=== PATIENT | male | born 1965 | race Caucasian/White ===

== ENCOUNTER → 2018-01-26 16:28 | Outpatient (CLI) | payer BC, SELFPAY ==
[2018-01-26 17:45] LABS: Absolute Lymphocyte Count 1.66 X10^3/ul (0.83-4.51); Absolute Neutrophil Count 2.5 X10^3/uL (2.0-7.7); Basophil# 0.03 X10^3/uL; Basophil% 0.6 % (0-1); Eosinophil# 0.26 X10^3/uL; Eosinophils% 5.3 % (0-5); Hematocrit 45.6 % (40-54); Hemoglobin 15.7 g/dl (13.0-16.5); Lymphocyte # 1.66 X10^3/ul (4.0); Lymphocyte % 33.6 % (19-41); Mean Corp Hgb Conc 34.4 g/gl (32-36); Mean Corpuscular Hgb 29.4 pg (27.0-32.0); Mean Corpuscular Volume 85.4 fL (80-94); Mean Platelet Vol. 9.4 fl (6.2-12.0); Monocyte# 0.48 X10^3/uL; Monocyte% 9.7 % (0-10); Neutrophil # 2.51 X10^3/uL (2.7-7.7); Neutrophil % 50.8 % (47-70); Platelet Count 353 K/mm3 (150-450); RBC Distribution Width CV 13.2 % (11.6-14.6); RBC Distribution Width SD 40.6 fl (35.1-43.9); Red Blood Count 5.34 M/mm3 (4.6-6.2); White Blood Count 4.9 K/mm3 (4.4-11.0)
[2018-01-26 17:46] LABS: POSITIVE COUNT NO; POSITIVE DIFFERENTIAL NO; POSITIVE MORPHOLOGY NO
[2018-01-26 18:31] LABS: ALB/GLOB Ratio 1.3 RATIO (0.9-2.4); AST(SGOT) 22 U/L (15-37); Alanine Aminotransfer ALT/SGPT 41 U/L (16-61); Albumin, Serum 4.1 g/dL (3.2-5.0); Alkaline Phosphatase 110 U/L (45-117); Anion Gap 6 (5-15); BUN 16 mg/dL (7-18); BUN/Creat Ratio 16.7 RATIO (10-20); Chloride 108 mmol/L (98-107); Creatinine, Serum 0.96 mg/dL (0.70-1.30); EST Glomerular Filtration Rate 88 mL/min (>60); Est Glom Filt Rate - Afr Amer 106 mL/min (>60); Globulin 3.1 g/dL (2.2-4.2); Glucose 82 mg/dL (74-106); Potassium 4.1 mmol/L (3.5-5.1); Protein, Total 7.2 g/dL (6.4-8.2); Sodium Level 142 mmol/L (136-145); T4 Free Direct 0.93 ng/dL (0.76-1.46); Thyroid Stim Hormone (TSH) 1.31 uIU/mL (0.358-3.74)
== END ==
PROVIDERS: Family Provider Family Medicine; PCP Family Medicine; Visit Provider Family Medicine
DX: R13.10 Dysphagia, unspecified (principal)
CPT/HCPCS: 36415; 80053; 84439; 84443; 85025

== ENCOUNTER → 2018-02-03 07:56 | Outpatient (CLI) | payer BC, SELFPAY ==
--- NOTE | 2018-02-03 07:58 | RAD_ITS ---
STUDY: X-RAY - ESOPHAGUS (BARIUM SWALLOW) WITH FLUOROSCOPY REASON FOR EXAM: Male, 52 years old. One year history of dysphagia. TECHNIQUE: 13 view(s) of the esophagus were obtained following swallowing of barium. FLUOROSCOPY TIME (if supplied): (0:20) minutes/seconds COMPARISON: None. FINDINGS: There is no demonstrated esophageal foreign body. There is no demonstrated stricture or mucosal abnormality. Normal gastroesophageal junction, without a demonstrated hiatal hernia. The patient ingested a 12 mm tablet of barium without any difficulty. Normal visualized aortic arch and descending thoracic aorta. Normal visualized pulmonary parenchyma. Normal visualized osseous structures of the thorax. RAD/Esophagus Only IMPRESSION: Normal plain film x-ray examination (barium swallow) of the esophagus. Electronically Signed: Micah Rojo MD at 8:43 EDT Tel [phone], Service support ,
== END ==
PROVIDERS: Family Provider Family Medicine; PCP Family Medicine; Visit Provider Family Medicine
DX: R13.10 Dysphagia, unspecified (principal)
CPT/HCPCS: 74220

== ENCOUNTER 2018-04-13 12:56 | Outpatient (RCR) | payer BC, SELFPAY | END 2018-04-25 23:59 | LOC: NS 12:56 | PROVIDERS: Family Provider Family Medicine; PCP Family Medicine; Visit Provider Family Medicine | DX: E66.09 Other obesity due to excess calories (principal); Z68.31 Body mass index [BMI] 31.0-31.9, adult; Z71.3 Dietary counseling and surveillance ==

== ENCOUNTER 2018-05-15 11:02 | Outpatient (RCR) | payer BC, SELFPAY ==
--- NOTE | 2018-05-15 16:45 | HP.PTEVAL ---
Patient's Visit Information STEPHAN MONTELONGO is a 52 year old M referred to Physical Therapy by Edy Chaparro with a diagnosis of B plantar fasciatis, L worse than R. Date of Evaluation: 05/15/18 Physical Therapist: Benjamin Neri - Visit Plan Frequency: 1x/Week Duration: 10 weeks Plan: Start with stretching of G/S complex, stress long holds with increased frequency. Add in graston for plantar fascia and foam rolling of G/S complex. progress to eccentric loading of tissue once symptoms have reduced. - Subjective Subjective: Pt. is here today for his initial evaluation with diagnosis B plantar fasciatis with L worse than R. Pt. reports having bilateral plantar fasciatis for ~ 2 years. Pt. reprots having Pt prior to this with focus on on US, IFC. He has done some self stretching at home, but not consistently. Pt. has also trialed night splints, but did not wear consistently. Pt. reports increased pain in AMs iwth initial steps that improves with movement, but increases by the end of the day. He denies N/T in either LEs. Pt. reports pain at plantar surface of calcaneus. Pt. works in [employer] 12 hours a day. Pt. is hopeful to reduce symptoms in order to get back to all recreational activities without limitations. - Pain L plantar fascia Pain Intensity (Out of 10): 1 Pain Intensity Range: 0, 7 R plantar fascia Pain Intensity (Out of 10): 0 Pain Intensity Range: 0, 3 - Objective POSTURE: Pt. has pes cavus in bilateral arches. He does have navicular drop in SLS on BLE with some increased ankle instability. PALPATION: Pt. has increasd tenderness throughout plantar fascia, and longitudinal arch bilaterally. Mild achilles tendon tenderness. NEURO: Normal, no issues. ROM: Pt. has normal ROM, except 10deg of R DF and 8deg of L DF passively. Pt. reports increased stretch with G/S complete stretching. MMT: 5/5 throughout, except 4+/5 bilateral foot intrinsics. Pt. has normal knee strength bilaterally. GAIT: Pt. has slight increase in toeing out on R side during stance phase. PT. has increased calcaneal varus in stance. STAIRS: early heel off with stance phase bilaterally L worse than R. SPECIAL TEST: + windlass test unloaded and loaded. - Goals Goal 1:: Pt. to be I with HEP. Goal Time Frame: 4-6 Weeks Goal 2:: Pt. to have increased B ankle DF by 5deg allowing for decreased stress on plantar fascia during stance phase. Goal Time Frame: 4-6 Weeks Goal 3:: Pt. to ambulate without increase in symptoms for unlimited distances. Goal Time Frame: 4-6 Weeks Goal 4:: Pt. to have decreased pain with initial standing after prolonged sitting or initially in AMs. Goal Time Frame: 4-6 Weeks - Rehabilitation Potential Physical Therapy Diagnosis: Pt. hs signs and symptoms consistent with B plantar fasciatis with L being worse than R. Pt. has decreased G/S length, decreased tolerance to walking and increased pain. He would benefit from PT to increase ROM, decrease pain and increased tolerance to all walking/standing mobility. Rehabilitation Potential: Good - Anticipated Interventions Patient/Client Instruction: Educate patient on: Condition, Plan of Care, Risk Factors, Benefits of Fitness Program For the Purpose of:: To improve safety, To improve health and function, To foster healthy habits, To improve decision making, To facilitate caregiver knowledge, To improve self management, To prevent re-injury, To improve ability to perform tasks related to life management, To improve tolerance to ADL's Therapeutic Exercise to Include: Strength training, Power training, Postural training, Flexibilty training, Gait and locomotor training, Passive ROM, Active ROM For the Purpose of:: To decrease pain, To decrease swelling/inflammation, To increase ROM, To improve nutrient delivery to tissue, To increase oxygenation perfusion, To improve health of tissue, To decrease soft tissue restriction, To increase flexibility/ROM, To improve endurance Manual Therapy Techniques to Include: Mobilization, Functional dry needling, Soft tissue mobilization For the Purpose of:: To decrease pain, To decrease swelling/inflammation, To increase ROM, To improve nutrient delivery to tissue Thank you for the opportunity to evaluate your patient. For Medicare and Medicare HMO plans, please review the plan of care and approve it. It will need to be FAXED BACK to us at [phone] for Medicare purposes. Please let me know if there are questions or concerns regarding this plan of care. Physician Signature: Date:
--- NOTE | 2018-07-04 10:44 | HP.PT.NRP ---
HP - Discharge Summary (1) - Patient Information STEPHAN MONTELONGO was seen in my office for initial evaluation on 05/15/18. The following Plan of Care was established for this patient: Initial Frequency: 1x/Week Initial Duration: 10 weeks - Anticipated Interventions Patient/Client Instruction: Educate patient on: Condition, Plan of Care, Risk Factors, Benefits of Fitness Program For the Purpose of:: To improve safety, To improve health and function, To foster healthy habits, To improve decision making, To facilitate caregiver knowledge, To improve self management, To prevent re-injury, To improve ability to perform tasks related to life management, To improve tolerance to ADL's Therapeutic Exercise to Include: Strength training, Power training, Postural training, Flexibilty training, Gait and locomotor training, Passive ROM, Active ROM For the Purpose of:: To decrease pain, To decrease swelling/inflammation, To increase ROM, To improve nutrient delivery to tissue, To increase oxygenation perfusion, To improve health of tissue, To decrease soft tissue restriction, To increase flexibility/ROM, To improve endurance Manual Therapy Techniques to Include: Mobilization, Functional dry needling, Soft tissue mobilization For the Purpose of:: To decrease pain, To decrease swelling/inflammation, To increase ROM, To improve nutrient delivery to tissue This patient was last seen in our office 05/15/18. Pertinent comments regarding their Physical therapy will appear below: Pt. was seen for his initial evaluation with diagnosis of plantar faciatis. Pt. was seen for initial evaluation, but no subsequent visits. He has not been seen in ~6 weeks and will be DC from PT at this point in time. At this point I will be discontinuing this patient from physical therapy. I would be happy to see this patient again in the future if found appropriate by the physician. Thank you! Benjamin Neri
== END 2018-05-15 19:00 | disposition home or self-care (01) ==
LOC: PT 11:02
PROVIDERS: Family Provider Family Medicine; PCP Family Medicine; Visit Provider Family Medicine
DX: M72.2 Plantar fascial fibromatosis (principal)
CPT/HCPCS: 97110; 97161

== ENCOUNTER 2018-05-24 10:30 | Outpatient (RCR) | payer BC, SELFPAY | END 2018-05-26 23:59 | LOC: NS 10:30 | PROVIDERS: Family Provider Family Medicine; PCP Family Medicine; Visit Provider Family Medicine | DX: E66.9 Obesity, unspecified (principal); Z68.31 Body mass index [BMI] 31.0-31.9, adult; Z71.3 Dietary counseling and surveillance | CPT/HCPCS: 97803 ==

== ENCOUNTER 2018-06-09 08:33 | Outpatient (RCR) | payer BC, SELFPAY | END 2018-06-25 23:59 | LOC: NS 08:33 | PROVIDERS: Family Provider Family Medicine; PCP Family Medicine; Visit Provider Family Medicine | DX: E66.9 Obesity, unspecified (principal); Z68.31 Body mass index [BMI] 31.0-31.9, adult; Z71.3 Dietary counseling and surveillance | CPT/HCPCS: 97803 ==

== ENCOUNTER 2018-06-26 09:07 | Outpatient (RCR) | payer BC, SELFPAY | END 2018-07-26 23:59 | LOC: NS 09:07 | PROVIDERS: Family Provider Family Medicine; PCP Family Medicine; Visit Provider Family Medicine | DX: E66.9 Obesity, unspecified (principal); Z68.31 Body mass index [BMI] 31.0-31.9, adult; Z71.3 Dietary counseling and surveillance ==

== ENCOUNTER 2018-09-07 09:59 | Outpatient (RCR) | payer BC, SELFPAY ==
--- OUTSIDE RECORDS SUMMARY | 2018-10-24 04:05 | XMS RPT_ITS ---
:1965 Author Organization OHIP Support Name Relationship Address Phone TERI MONTELONGO Unavailable [address] + [place] [address] JMSM Unavailable [address] + [place] [address] REGINALD, TERI Unavailable [address] + [place] [address] JMSM Unavailable [address] + [place] [address] REGINALD, TERI Unavailable [address] + [place] [address] JMSM Unavailable [address] + [place] [address] REGINALD, TERI Unavailable [address] + [place] [address] JMSM Unavailable [address] + [place] [address] REGINALD, TERI Unavailable [address] + [place] [address] JMSM Unavailable [address] + [place] [address] REGINALD, TERI Unavailable [address] + [place] [address] JMSM Unavailable [address] + [place] [address] REGINALD, TERI Unavailable [address] + [place] [address] JMSM Unavailable [address] + [place] [address] REGINALD, TERI Unavailable [address] + [place] [address] JMSM Unavailable [address] + [place] [address] REGINALD, TERI Unavailable [address] [place] [address] DR + [place] [address] [facility] [place] [address] + [place] [address] Care Team Providers Name Role Phone Chaparro, Edy Attending Unavailable Chaparro, Edy Primary Care Unavailable Chaparro, Edy Attending Unavailable Chaparro, Edy Primary Care Unavailable Chaparro, Edy Attending Unavailable Chaparro, Edy Referring Unavailable Chaparro, Edy Primary Care Unavailable Chaparro, Edy Attending Unavailable Chaparro, Edy Primary Care Unavailable Chaparro, Edy Attending Unavailable Chaparro, Edy Primary Care Unavailable Chaparro, Edy Attending Unavailable Chaparro, Edy Referring Unavailable Chaparro, Edy Primary Care Unavailable Chaparro, Edy Attending Unavailable Chaparro, Edy Primary Care Unavailable Chaparro, Edy Attending Unavailable Chaparro, Edy Primary Care Unavailable Chaparro, Edy Attending Unavailable Chaparro, Edy Primary Care Unavailable PROBLEMS PROBLEMS DATE TYPE CONDITION / CODE ATTENDING STATUS SOURCE 09/27/2018 Unknown E66.9 - Obesity, Shankar, Edy Active [facility] unspecified / Community E66.9(ICD-10) Hospital Repository 07/06/2018 Unknown M72.2 - Plantar Chaparro, Edy Active [place] fascial Community fibromatosis / Hospital M72.2(ICD-10) Repository 02/03/2018 Unknown R13.10 - Chaparro, Edy Active [facility] Dysphagia, Community unspecified / Hospital R13.10(ICD-10) Repository PROCEDURES PROCEDURES No Procedure Records FoundRESULTS RESULTS INITAL EVALUATION (1) Observed: 05/15/2018 Status: F Source: [place] - PT 4:46 PM [facility] [place] [facility] [address] [place] [address] Fax REHABILITATION SERVICES INITIAL EVALUATION MR#: [id number] Acct: [id number] Name: STEPHAN MONTELONGO Rep #: [id number] : 1965 52 From: Benjamin Neri DPT Referring Dr.: Edy Chaparro MD Status: REG RCR Insurance: ANTHEM SELF PAY INSURANCE Patient's Visit Information STEPHAN MONTELONGO is a 52 year old M referred to Physical Therapy by Edy Chaparro with a diagnosis of B plantar fasciatis, L worse than R. Date of Evaluation: 05/15/18 Physical Therapist: Benjamin Neri - Visit Plan Frequency: 1x/Week Duration: 10 weeks Plan: Start with stretching of G/S complex, stress long holds with increased frequency. Add in graston for plantar fascia and foam rolling of G/S complex. progress to eccentric loading of tissue once symptoms have reduced. - Subjective Subjective: Pt. is here today for his initial evaluation with diagnosis B plantar fasciatis with L worse than R. Pt. reports having bilateral plantar fasciatis for 2 years. Pt. reprots having Pt prior to this with focus on on US, IFC. He has done some self stretching at home, but not consistently. Pt. has also trialed night splints, but did not wear consistently. Pt. reports increased pain in AMs iwth initial steps that improves with movement, but increases by the end of the day. He denies N/T in either LEs. Pt. reports pain at plantar surface of calcaneus. Pt. works in [employer] 12 hours a day. Pt. is hopeful to reduce symptoms in order to get back to all recreational activities without limitations. - Pain L plantar fascia Pain Intensity (Out of 10): 1 Pain Intensity Range: 0, 7 R plantar fascia Pain Intensity (Out of 10): 0 Pain Intensity Range: 0, 3 - Objective POSTURE: Pt. has pes cavus in bilateral arches. He does have navicular drop in SLS on BLE with some increased ankle instability. PALPATION: Pt. has increasd tenderness throughout plantar fascia, and longitudinal arch bilaterally. Mild achilles tendon tenderness. NEURO: Normal, no issues. ROM: Pt. has normal ROM, except 10deg of R DF and 8deg of L DF passively. Pt. reports increased stretch with G/S complete stretching. MMT: 5/5 throughout, except 4+/5 bilateral foot intrinsics. Pt. has normal knee strength bilaterally. GAIT: Pt. has slight increase in toeing out on R side during stance phase. PT. has increased calcaneal varus in stance. STAIRS: early heel off with stance phase bilaterally L worse than R. SPECIAL TEST: + windlass test unloaded and loaded. - Goals Goal 1:: Pt. to be I with HEP. Goal Time Frame: 4-6 Weeks Goal 2:: Pt. to have increased B ankle DF by 5deg allowing for decreased stress on plantar fascia during stance phase. Goal Time Frame: 4-6 Weeks Goal 3:: Pt. to ambulate without increase in symptoms for unlimited distances. Goal Time Frame: 4-6 Weeks Goal 4:: Pt. to have decreased pain with initial standing after prolonged sitting or initially in AMs. Goal Time Frame: 4-6 Weeks - Rehabilitation Potential Physical Therapy Diagnosis: Pt. hs signs and symptoms consistent with B plantar fasciatis with L being worse than R. Pt. has decreased G/S length, decreased tolerance to walking and increased pain. He would benefit from PT to increase ROM, decrease pain and increased tolerance to all walking/standing mobility. Rehabilitation Potential: Good - Anticipated Interventions Patient/Client Instruction: Educate patient on: Condition, Plan of Care, Risk Factors, Benefits of Fitness Program For the Purpose of:: To improve safety, To improve health and function, To foster healthy habits, To improve decision making, To facilitate caregiver knowledge, To improve self management, To prevent re-injury, To improve ability to perform tasks related to life management, To improve tolerance to ADL's Therapeutic Exercise to Include: Strength training, Power training, Postural training, Flexibilty training, Gait and locomotor training, Passive ROM, Active ROM For the Purpose of:: To decrease pain, To decrease swelling/inflammation, To increase ROM, To improve nutrient delivery to tissue, To increase oxygenation perfusion, To improve health of tissue, To decrease soft tissue restriction, To increase flexibility/ROM, To improve endurance Manual Therapy Techniques to Include: Mobilization, Functional dry needling, Soft tissue mobilization For the Purpose of:: To decrease pain, To decrease swelling/inflammation, To increase ROM, To improve nutrient delivery to tissue Thank you for the opportunity to evaluate your patient. For Medicare and Medicare HMO plans, please review the plan of care and approve it. It will need to be FAXED BACK to us at [phone] for Medicare purposes. Please let me know if there are questions or concerns regarding this plan of care. Physician Signature: Date: <Electronically signed by Benjamin Neri DPT> 05/15/18 1646 CC: Edy Chaparro MD CLS Signed For Medicare only, by signing this I certify the plan of care. Physicians Signature Date ESOPHAGUS ONLY Observed: 02/03/2018 Status: F Source: [facility] 7:59 AM [facility] [place] [facility] Imaging Services [address] [place] [address] Esophagus Only MR#: [id number] Acct: [id number] Name: STEPHAN MONTELONGO Rep #: [id number] : 1965 M 52 From: Micah Rojo MD PCP: Edy Chaparro MD Status: REG CLI Study: Esophagus Only Date of Exam: 02/03/18 Exam# [id number] Ordering Dr: Edy Chaparro MD STUDY: X-RAY - ESOPHAGUS (BARIUM SWALLOW) WITH FLUOROSCOPY REASON FOR EXAM: Male, 52 years old. One year history of dysphagia. TECHNIQUE: 13 view(s) of the esophagus were obtained following swallowing of barium. FLUOROSCOPY TIME (if supplied): (0:20) minutes/seconds COMPARISON: None. FINDINGS: There is no demonstrated esophageal foreign body. There is no demonstrated stricture or mucosal abnormality. Normal gastroesophageal junction, without a demonstrated hiatal hernia. The patient ingested a 12 mm tablet of barium without any difficulty. Normal visualized aortic arch and descending thoracic aorta. Normal visualized pulmonary parenchyma. Normal visualized osseous structures of the thorax. RAD/Esophagus Only IMPRESSION: Normal plain film x-ray examination (barium swallow) of the esophagus. Electronically Signed: Micah Rojo MD at 8:43 EDT Tel [phone], Service support , CC: Edy Chaparro MD Community Health Outreach Worker: Signed CBC W/DIFF, AUTOMATED Collected: 01/26/2018 Status: F Source: [place] 4:32 PM [facility] [place] [facility] TYPE CODE TESTS RESULT OUT OF RANGE REFERENCE UNITS LAB L100.1000 4.4-11.0 K/mm3 Normal WBC 4.9 LAB L100.1200 4.6-6.2 M/mm3 Normal RBC 5.34 LAB L100.1300 13.0-16.5 g/dl Normal HGB 15.7 LAB L100.1400 40-54 % Normal HCT 45.6 LAB L100.1500 80-94 fL Normal MCV 85.4 LAB L100.1600 27.0-32.0 pg Normal MCH 29.4 LAB L100.1700 32-36 g/gl Normal MCHC 34.4 LAB L100.1810 11.6-14.6 % Normal RDW CV 13.2 LAB L100.1820 35.1-43.9 fl Normal RDW SD 40.6 LAB L100.1900 150-450 K/mm3 Normal PLT 353 LAB L100.2000 6.2-12.0 fl Normal MPV 9.4 LAB L100.2100 47-70 % Normal NEUT% 50.8 LAB L100.2200 19-41 % Normal LY% 33.6 LAB L100.2300 0-10 % Normal MONO% 9.7 LAB L100.2400 0-5 % High EO% 5.3 LAB L100.2500 0-1 % Normal BASO% 0.6 LAB L100.2550 0.0-0.9 % Normal IM GRAN % 0.000 Result Comment: IG% - Immature Granulocytes (promyelocytes, myelocytes and metamyelocytes) > 1% indicates that a LEFT SHIFT is Present. LAB L100.2620 2.0-7.7 X10 3/uL Normal Absolute Neut 2.5 LAB L100.2720 0.83-4.51 X10 3/ul Normal Absolute Lymph 1.66 Performed By: #### L100.0100 #### [facility] [place], [place], [id number] COMPREHENSIVE METABOLIC Collected: 01/26/2018 Status: F [facility] [place] [facility] TYPE CODE TESTS RESULT OUT OF RANGE REFERENCE UNITS LAB L501.0100 74-106 mg/dL Normal GLU 82 Result Comment: Please note revised GLUCOSE reference range effective 2017. LAB L501.1000 7-18 mg/dL Normal BUN 16 LAB L501.1100 0.70-1.30 mg/dL Normal CREAT,SERUM 0.96 Result Comment: The validity of the calculated GFR AND GFRAA in patients over 70 years has not been determined. Clinical correlation is essential. LAB L501.1110 >60 mL/min Normal EST GFR 88 Result Comment: Non- GFR Calc LAB L501.1115 >60 mL/min Normal EST GFR - AA 106 Result Comment: GFR Calc LAB L501.1300 10-20 RATIO Normal BUN/CRE 16.7 LAB L501.1500 6.4-8.2 g/dL T Normal PROT 7.2 LAB L501.1800 3.2-5.0 g/dL Normal ALB 4.1 LAB L501.1950 2.2-4.2 g/dL Normal GLOB 3.1 LAB L501.2000 0.9-2.4 RATIO Normal A/G 1.3 LAB L501.2200 8.5-10.1 mg/dL CA Normal 9.0 LAB L501.4100 15-37 U/L Normal AST 22 LAB L501.4305 45-117 U/L Normal ALK P 110 LAB L501.4405 16-61 U/L Normal ALT 41 LAB L501.4600 0.20-1.00 mg/dL T Normal BILI 0.40 LAB L501.5300 136-145 mmol/L NA Normal 142 LAB L501.5600 3.5-5.1 mmol/L K Normal 4.1 LAB L501.5900 98-107 mmol/L High CL 108 LAB L501.6100 21.0-32.0 mmol/L Normal CO2 28.0 LAB L501.6200 5-15 Normal GAP 6 Performed By: #### L500.4050, L501.9520, L506.0400 #### [facility] [address] [place], [place], [id number] THYROID STIM HORMONE Collected: 01/26/2018 Status: F Source: [facility] (TSH) 4:32 PM [facility] [place] [facility] TYPE CODE TESTS RESULT OUT OF RANGE REFERENCE UNITS LAB L501.9520 0.358-3.74 uIU/mL Normal TSH 1.31 Performed By: #### L500.4050, L501.9520, L506.0400 #### [facility] [address] [place], [address] T4 FREE DIRECT Collected: 01/26/2018 Status: F Source: [facility] 4:32 PM [facility] REPOSITORY TYPE CODE TESTS RESULT OUT OF RANGE REFERENCE UNITS LAB L506.0400 0.76-1.46 ng/dL Normal T4 FREE 0.93 DIRECT Performed By: #### L500.4050, L501.9520, L506.0400 #### [facility] [address] [place], [address] ALLERGIES ALLERGIES No Allergies Records FoundENCOUNTERS ENCOUNTERS ADMIT/DISCHARGE ACCOUNT ADMITTING ENCOUNTER LOCATION SOURCE NUMBER CLASS 09/29/2018 [id number] Ambulatory [facility] [place] [facility] ing:NS Repository 09/07/2018/ [id number] Ambulatory [facility] [address] [facility] ing:NS Repository 06/26/2018/ [id number] Ambulatory [facility] [address] [facility] ing:NS Repository 06/09/2018/ [id number] Ambulatory [facility] [address] [facility] ing:NS Repository 05/24/2018/ [id number] Amb[place] [address] [facility] ing:NS Repository 05/15/2018/ [id number] Ambulatory [facility] [address] [facility] ing:PT Repository 04/13/2018/ [id number] Ambulatory [place] [address] [facility] ing:NS Repository 02/03/2018 [id number] Ambulatory [facility] ing:RAD Repository 01/26/2018 [id number] Amb[place] [facility] ing:MFPLAB Repository PAYERS PAYERS ENCOUNTER GUARANTOR PAYER SUBSCRIBER SOURCE 09/29/2018 STEPHAN Curry [id number] [address] Insurance:ANTHEMPolic [place]DOB: [place] Number: [id number] [id number]: [id number] Repository Date:4948-09-62MB [address] () [id number] [place] [address]PB: 09/29/2018 Secondary NOT GIVENUNK [place] Insurance:SELF PAY [facility] Number: Effective Repository Date:2018-09-26 09/07/2018 STEPHAN Franco Primary STEPHAN Franco [place] [id number] [address] Insurance:ANTHEMPolic BINGDOB: Community [place], y Number: [id number][facility] [id number]: [id number] Repository Date:3637-83-55OR [address] () [id number] [place] [address]VS: 09/07/2018 Secondary NOT GIVENUNK [place] Insurance:SELF PAY [facility] Number: Effective Repository Date:2018-07-27 06/26/2018 STEPHAN Franco Primary STEPHAN Gaitanoster [id number] K[address] Insurance:ANTHEMPolic BINGDOB: Community [place], y Number: [id number]-Canonc[facility] [id number]: [id number] Repository Date:7778-93-65JE [address] () [id number] [place] [address]NX: 06/26/2018 Secondary NOT GIVENUNK [facility] Insurance:SELF PAY [facility] Number: Effective Repository Date:2018-06-26 06/09/2018 STEPHAN Franco Primary STEPHAN Gaitanoster [id number] K[address] Insurance:ANTHEMPolic BINGDOB: Community [place], y Number: [id number]-Canon[facility] [id number]: [id number] Repository Date:0532-93-09BU [address]OX () [id number] [place] [address]EC: 06/09/2018 Secondary NOT GIVENUNK [facility] Insurance:SELF PAY [facility] Number: Effective Repository Date:2018-05-27 05/24/2018 STEPHAN Franco Primary STEPHAN Franco [facility] [id number] K[address]IE Insurance:ANTHEMPolic BINGDOB: Community [place], y Number: [id number]-Canonc[facility] [id number]: [id number] Repository Date:7452-47-43MI [address]OX () 429[address]ADWBLEW [place] [address]KB: 05/24/2018 Secondary NOT GIVENUNK [place] Insurance:SELF PAY [facility] Number: Effective Repository Date:2018-04-26 05/15/2018 STEPHAN Franco Primary STEPHAN Franco [facility] [id number] [address] Insurance:ANTHEMPolic BINGDOB: Community [place], y Number: [id number]-Canonc[facility] [id number]: [id number] Repository Date:2951-82-41EY [address] () [id number] [place] [address]WI: 05/15/2018 Secondary NOT GIVENUNK [place] Insurance:SELF PAY [facility] Number: Effective Repository Date:2018-05-10 04/13/2018 STEPHAN Franco Primary STEPHAN Franco [facility] [id number] [address] Insurance:ANTHEMPolic BINGDOB: Community [place], y Number: [id number]-Canoncito-[facility] [id number]: [id number] Repository Date:3230-65-48GD BOX () [id number] [place] [address]ZX: 04/13/2018 Secondary NOT GIVENUNK [place] Insurance:SELF PAY [facility] Number: Effective Repository Date:2018-03-27 02/03/2018 STEPHAN Franco Primary STEPHAN Franco [place] [id number] [address] Insurance:ANTHEMPolic BINGDOB: Community [place], y Number: [id number]-Canonc[facility] [id number]: [id number] Repository Date:2264-00-67YW [address]OX () [id number], [place] [address]GQ: 02/03/2018 Secondary NOT GIVENUNK [place] Insurance:SELF PAY [facility] Number: Effective Repository Date:2018-01-31 01/26/2018 STEPHAN GALICIA Primary STEPHAN Curry [id number] K[address] Insurance:ANTHEMPolic BINGDOB: [facility] y Number: [id number]-Canonc[facility] [id number]: [id number] Repository Date:7630-24-39SE [address]OX () [address]13114FJFRTCB, [place] [address]WD: 01/26/2018 Secondary NOT GIVENUNK [facility] Insurance:SELF PAY [facility] Number: Effective Repository Date:2018-01-26
== END 2018-09-07 23:59 ==
LOC: NS 09:59
PROVIDERS: Family Provider Family Medicine; PCP Family Medicine; Visit Provider Family Medicine
DX: E66.9 Obesity, unspecified (principal); Z68.31 Body mass index [BMI] 31.0-31.9, adult; Z71.3 Dietary counseling and surveillance
CPT/HCPCS: 97803

== ENCOUNTER → 2019-05-15 08:45 | Outpatient (CLI) | payer BC, SELFPAY ==
[2019-05-15 10:46] LABS: Cholesterol 236 mg/dL (200); Glucose 90 mg/dL (74-106); High Density Lipoprotein 38 mg/dL; PSA,Total - Annual Screen 0.62 ng/mL (0.00-4.00); Triglycerides 274 mg/dL; Very Low Density Lipoprotein 55 mg/dL (5-40)
== END ==
PROVIDERS: Family Provider Family Medicine; PCP Family Medicine; Referring Provider Family Medicine; Visit Provider Family Medicine
DX: E78.00 Pure hypercholesterolemia, unspecified (principal); Z12.5 Encounter for screening for malignant neoplasm of prostate
CPT/HCPCS: 36415; 80061; 82947; 84153; G0103

== ENCOUNTER 2020-09-02 06:30 | Emergency (ER) | payer BC, SELFPAY ==
[2020-09-02 06:32] VITALS: BP 111/99; PULSE 79; RESP 18; TEMP 36.1; O2SAT 98; BMI 28.5
--- NOTE | 2020-09-02 06:40 | ED.DCSUM_ITS ---
History of Present Illness Chief Complaint: Back Informant: Patient Narrative: 54-year-old male with past medical history of anxiety presents with concern for back spasm. States he was standing up off the toilet today when his back began to spasm mainly on the right side. States that he has had this somewhat frequently over the past year. Last episode was approximately 1 month ago. Denies any fever, chills, IV drug abuse, saddle anesthesia, fall or trauma, loss of bowel or bladder. Past Medical History - Allergies and Home Meds Allergies/Adverse Reactions: Allergies No Known Allergies Allergy (Verified 09/02/20 06:31) Primary Care Physician: Edy Chaparro MD [Primary Care Provider] - Prior records reviewed: Yes Past Medical History: - - anxiety Surgical History: no surgical history Lives: Spouse/ Significant Other Smoking Status: Never smoker Alcohol: None Drugs: None Review of Systems General: Denies: Chills, Fever, Sweats Eyes: Denies: Visual changes - bilaterally, Diplopia ENT: Denies: Rhinorrhea, Sore throat Cardiovascular: Denies: Chest pain, Palpitations Respiratory: Denies: Dyspnea, Cough, Dyspnea on exertion Gastrointestinal: Denies: Abdominal pain, Nausea, Vomiting, Diarrhea, Melena, Hematochezia Genitourinary: Denies: Dysuria, Hematuria, Frequency Musculoskeletal: Reports: Back pain. Denies: Extremity Pain Skin: Denies: Rash, Wounds Neurological: Denies: Headache, Weakness, Numbness Physical Exam Vital Signs/Narrative: Vital Signs Temp Pulse Resp BP Pulse Ox 09/02/20 06:32 97.0 F L 79 18 111/99 H 98 Inital Vital Signs reviewed: Yes General: Well nourished, Well developed, No Acute Distress Head: Normocephalic, Atraumatic Eyes: Perrl, EOMI ENT: Moist mucous membranes, No rhinorrhea Neck: Supple, Nontender Cardiovascular: Regular rate, Regular rhythm, No murmurs Respiratory: No distress, CTA bilaterally, Chest nontender Abdomen: Soft, Nontender, Nondistended, Normal bowel sounds Back: Normal Inspection, - - Lumbar muscle spasm to the right paraspinal muscles. Extremities: Nontender, No edema Skin: Normal color, No rash Neurological: Alert, Oriented x3, Cranial nerves II-XII grossly intact, Normal Strength, Normal Sensation Psychological: Normal affect, Normal Mood Diagnostic/Tx/Re-eval - Medical Decision Making Patient appears well and nontoxic. No red flag symptoms for cauda equina syndrome. She is ambulatory. Given Toradol and cyclobenzaprine as well as Lidoderm patch in the emergency department. Will be written for naproxen and cyclobenzaprine. Advised on rest today and active stretching. Asked to follow- up with primary care. Asked to return for new or worsening symptoms. Patient agreeable and discharged home in stable condition. Impression: 1. Acute lumbar back pain 2. Muscle spasm ED Disposition - Plan for ED Patient: Disposition: Home or Assisted Living Instructions: ED Back Spasm, No Trauma Prescriptions: Cyclobenzaprine HCl 5 mg PO Q8H PRN PRN #12 tab PRN Reason: Muscle Spasm Prescription Printed Naproxen [Naprosyn] 500 mg PO BID #14 tab Prescription Printed Referrals: Edy Chaparro MD [Primary Care Provider] - 2 Days
[2020-09-02] MEDS: Ketorolac 15 MG/ML Vial IM (06:56)
[2020-09-02] MEDS: Lidocaine 5% Patch 1 PATCH TOPICAL (06:56)
[2020-09-02] MEDS: cycloBENZAPRine HCl 5 MG TABLET PO (07:25)
== END 2020-09-02 07:29 | disposition home or self-care (01) ==
LOC: ED 06:55
PROVIDERS: Emergency Provider Emergency Medicine; PCP Family Medicine
DX: M54.5 Low back pain (principal); M62.838 Other muscle spasm
CPT/HCPCS: 99281; 99283

== ENCOUNTER → 2020-09-30 11:46 | Outpatient (CLI) | payer BC, SELFPAY ==
[2020-09-02 06:32] VITALS: BMI 28.5
== END ==
LOC: MFPLAB 11:47 → LABSPEC 11:48
PROVIDERS: PCP Family Medicine; Referring Provider Family Medicine; Visit Provider Family Medicine
DX: R09.89 Other specified symptoms and signs involving the circulatory and respiratory systems (principal)
CPT/HCPCS: 87635; U0005; U0003

== ENCOUNTER → 2020-10-14 15:15 | Outpatient (CLI) | payer BC, SELFPAY | LOC: MFPLAB 15:16 → LABSPEC 15:17 | PROVIDERS: PCP Family Medicine; Referring Provider Family Medicine; Visit Provider Registered Nurse | DX: R43.8 Other disturbances of smell and taste (principal) | CPT/HCPCS: 87635; U0003 ==

== ENCOUNTER → 2020-11-13 10:37 | Outpatient (CLI) | payer BC, SELFPAY | PROVIDERS: PCP Family Medicine; Visit Provider Family Medicine | DX: J06.9 Acute upper respiratory infection, unspecified (principal) | CPT/HCPCS: 87635; U0005; U0003 ==

== ENCOUNTER → 2021-01-01 15:01 | Outpatient (CLI) | payer BC, SELFPAY ==
--- NOTE | 2020-12-31 | IMM_PTH ---
PATIENT: STEPHAN MONTELONGO LOC: [facility] U#:[id number] AGE/SX: 59/M ROOM: RE01/01/[address]: Dr. Bryn Viramontes DO : 1965 BED: DIS: SPEC #: [id number] RECD: 01/05/21 12:47 STATUS: [facility] REQ #: [id number] MARIANNE: 12/31/20 00:[address]: Bryn Viramnotes DEPT: IMMUNOHISTOCHEMISTRY RECD BY: Sejal Hart ENTERED: 01/05/21 12:49 SP TYPE: IMMUNO OTHR DR: Dr. Edy Chaparro MD Tissues: GANGLION CYST Procedures: SMA (add) CD31 (add) CD34 (add) P53 (add) Vimentin (add) FACTOR VIII (add) Pankeratin (initial) PHYSICIAN & INSTITUTION [place] [address] SPECIMEN INFORMATION: Tissue Source: Mass right hand Clinical Info: Ganglion cyst right index finger Specimen Number: [id number] CPT code: 98802, 48893 x6 METHODOLOGY: Deparaffinized sections of prefer/formalin-fixed tissue or PAP/DQ stained slides are incubated with monoclonal/polyclonal antibodies/oligonucleotide probes. Localization is made via biotin free immunoperoxidase method. Appropriate controls are performed and reacted as expected. Results on target cell population are indicated in the following table: RESULTS: ANTIBODY / CLONE RESULT AE1-3 (AE1/AE3/PCK26) negative Vimentin (V9) positive CD31 (RAFAEL/70A) positive Factor VIII (R Ag) positive CD34 (QBEnd-10) positive Actin (1A4) negative P53 (DO-7) negative These tests were developed and their performance characteristics determined by [facility]. They may not have been cleared or approved by the U.S. Food and Drug Administration. The FDA has determined that such clearance or approval is not necessary. The above immunohistochemical/dualISH markers are ordered and reviewed by the Pathologist. INTERPRETATION: Mass of right hand, biopsy: Consistent with lobular capillary hemangioma. AM:elvis 01/06/2021
--- NOTE | 2020-12-31 13:55 | CYST_PTH ---
PATIENT: STEPHAN MONTELONGO LOC: [facility] U#:[id number] AGE/SX: 59/M ROOM: RE01/01/[address]: Dr. Bryn Viramontes DO : 1965 BED: DIS: SPEC #: [id number] RECD: 01/01/21 14:33 STATUS: [facility] REGhazal #: [id number] MARIANNE: 12/31/20 13:[address]: Bryn Viramontes DEPT: SURGICAL PATHOLOGY RECD BY: Mervat Otero ENTERED: 01/02/21 08:33 SP TYPE: Cyst OTHR DR: Dr. Edy Chaparro MD [facility] Tissues: CYST Procedures: Surgery Specimen Level IV HEADER OPERATION: Excision of ganglion cyst versus epidermal inclusion cyst right index finger PRE-OP DIAGNOSIS: Ganglion cyst right index finger TISSUE SUBMITTED: Mass right hand MICROSCOPIC DIAGNOSIS Mass of right hand, biopsy: Consistent with capillary hemangioma. See comment. AM:elvis 01/05/2021 COMMENT Immunohistochemistry ([id number]) supports the above diagnosis. Case has been reviewed in consultation with Dr. Holden who concurs with the above diagnosis. IDC:MITCHELL MICROSCOPIC DESCRIPTION Slides are reviewed. GROSS DESCRIPTION Received is one container labeled with the patient's name and not further designated. The specimen consists of a piece of michael-white soft tissue measuring 0.7 x 0.5 x 0.3 cm. The entire specimen is submitted in one cassette. / MITCHELL:elvis 01/02/21 TC:1 CPT: 21890
== END ==
PROVIDERS: PCP Family Medicine; Referring Provider Orthopaedic Surgery; Visit Provider Orthopaedic Surgery
DX: M67.441 Ganglion, right hand (principal)
CPT/HCPCS: 88304; 88305; 88341; 88342

== ENCOUNTER → 2021-04-21 09:41 | Outpatient (CLI) | payer BC, SELFPAY ==
[2021-04-21 12:55] LABS: ALB/GLOB Ratio 1.2 RATIO (0.9-2.4); AST(SGOT) 26 U/L (15-37); Alanine Aminotransfer ALT/SGPT 46 U/L (16-61); Albumin, Serum 3.9 g/dL (3.2-5.0); Alkaline Phosphatase 103 U/L (45-117); Anion Gap 5 (5-15); BUN 20 mg/dL (7-18); Calcium,Total 9.4 mg/dL (8.5-10.1); Chloride 107 mmol/L (98-107); Cholesterol 243 mg/dL (200); Creatinine, Serum 1.11 mg/dL (0.70-1.30); EST Glomerular Filtration Rate 73 mL/min (>60); Est Glom Filt Rate - Afr Amer 89 mL/min (>60); Globulin 3.2 g/dL (2.2-4.2); Glucose 88 mg/dL (74-106); High Density Lipoprotein 41 mg/dL; Potassium 4.4 mmol/L (3.5-5.1); Protein, Total 7.1 g/dL (6.4-8.2); Sodium Level 140 mmol/L (136-145); Triglycerides 123 mg/dL; Very Low Density Lipoprotein 25 mg/dL (5-40)
== END ==
PROVIDERS: PCP Family Medicine; Referring Provider Family Medicine; Visit Provider Family Medicine
DX: E78.00 Pure hypercholesterolemia, unspecified (principal)
CPT/HCPCS: 36415; 80053; 80061

== ENCOUNTER → 2022-03-01 | Outpatient (CLI) | payer BC, SELFPAY ==
--- NOTE | 2022-03-01 07:57 | NM_ITS ---
CLINICAL: Male, 56 years old. DEGENERATIVE DISC DISEASE -- Back pain, no injury WHOLE BODY NUCLEAR BONE SCAN TECHNIQUE: Following the IV administration of 25.0 mCi of Tc MDP, whole body bone imaging was performed with a gamma camera following a three hour delay. COMPARISON STUDIES : NM - None. CR - Not available for review at this time. CT - Not available for review at this time. MR - Not available for review at this time. US - Not available for review at this time. FINDINGS: Mild degenerative activity of the left patellofemoral joint, bilateral shoulders and left wrist. There is otherwise normal concentration of radiopharmaceutical throughout the axial and appendicular skeletal system without either a focal decrease or increase in uptake. Specifically, isotope distribution of the spine is normal. NM/Bone Scan Whole Body IMPRESSION: Mild scattered degenerative activity, as above. Electronically Signed: Pedro Pablo Mcmullen MD ([place]) at 13:02 EDT Reading Location ID and State: [id number] [place] , Service support ,
== END | disposition home or self-care (01) ==
LOC: NM 07:52
PROVIDERS: PCP Family Medicine; Referring Provider Orthopaedic Surgery; Visit Provider Orthopaedic Surgery
DX: M51.36 Other intervertebral disc degeneration, lumbar region (principal)
CPT/HCPCS: 78306; A9503

== ENCOUNTER → 2022-04-05 | Outpatient (CLI) | payer BC, SELFPAY ==
[2022-04-05 14:50] LABS: Erythrocyte Sedimentation Rate 2 mm/hr (0-20)
[2022-04-05 14:52] LABS: Absolute Lymphocyte Count 1.23 X10^3/uL (0.83-4.51); Absolute Neutrophil Count 1.9 X10^3/uL (2.0-7.7); Basophil# 0.06 X10^3/uL; Basophil% 1.6 % (0-1); Eosinophil# 0.16 X10^3/uL; Eosinophils% 4.3 % (0-5); Lymphocyte # 1.23 X10^3/ul (0.83-4.51); Lymphocyte % 33.4 % (19-41); Mean Corpuscular Hgb 29.6 pg (27.0-32.0); Mean Platelet Vol. 9.4 fl (6.2-12.0); Monocyte# 0.29 X10^3/uL; Monocyte% 7.9 % (0-10); NRBC Flagged by Analyzer 0 % (0-5); Neutrophil # 1.93 X10^3/uL (2.7-7.7); Neutrophil % 52.5 % (47-70); Platelet Count 338 K/mm3 (150-450); RBC Distribution Width CV 12.6 % (11.6-14.6); RBC Distribution Width SD 39.8 fl (35.1-43.9); White Blood Count 3.7 K/mm3 (4.4-11.0)
[2022-04-05 15:05] LABS: Vitamin D,25 Hydroxy 33.8 ng/mL
[2022-04-05 15:29] LABS: CRP < 2.90 mg/L (0.0-3.0); Rheumatoid Factor < 10.0 IU/mL (<15)
[2022-04-14 19:07] LABS: PROEL- A/G Ratio 1.4 (0.7-1.7); PROEL- Albumin 3.9 g/dL (2.9-4.4); PROEL- Alpha-1 Globulin 0.2 g/dL (0.0-0.4); PROEL- Alpha-2 Globulin 0.7 g/dL (0.4-1.0); PROEL- Gamma Globulin 0.9 g/dL (0.4-1.8); PROEL- Globulin, Total 2.8 g/dL (2.2-3.9); PROEL- TOTAL PROTEIN 6.7 g/dL (6.0-8.5)
[2022-04-15 15:16] LABS: HLA B27 Positive (.)
== END | disposition home or self-care (01) ==
PROVIDERS: PCP Family Medicine; Referring Provider Orthopaedic Surgery; Visit Provider Orthopaedic Surgery
DX: M51.36 Other intervertebral disc degeneration, lumbar region (principal)
CPT/HCPCS: 36415; 81374; 82306; 84165; 85025; 85652; 86140; 86431

== ENCOUNTER → 2022-06-21 | Outpatient (CLI) | payer BC, SELFPAY ==
[2022-06-21 10:24] LABS: Hemoglobin A1c 5.5 % (3.8-5.6)
[2022-06-21 10:26] LABS: ALB/GLOB Ratio 1.1 RATIO (0.9-2.4); AST(SGOT) 23 U/L (15-37); Alanine Aminotransfer ALT/SGPT 42 U/L (16-61); Albumin, Serum 3.6 g/dL (3.2-5.0); Alkaline Phosphatase 90 U/L (45-117); Anion Gap 8 (5-15); BUN 15 mg/dL (7-18); BUN/Creat Ratio 13.3 RATIO (10-20); Calcium,Total 9.1 mg/dL (8.5-10.1); Chloride 106 mmol/L (98-107); Cholesterol 171 mg/dL (200); Creatinine, Serum 1.13 mg/dL (0.70-1.30); EST Glomerular Filtration Rate 71 mL/min (>60); Est Glom Filt Rate - Afr Amer 86 mL/min (>60); Globulin 3.3 g/dL (2.2-4.2); Glucose 94 mg/dL (74-106); High Density Lipoprotein 40 mg/dL; PSA,Total - Annual Screen 0.66 ng/mL (0.00-4.00); Potassium 3.9 mmol/L (3.5-5.1); Protein, Total 6.9 g/dL (6.4-8.2); Sodium Level 141 mmol/L (136-145); Triglycerides 166 mg/dL; Very Low Density Lipoprotein 33 mg/dL (5-40)
== END | disposition home or self-care (01) ==
PROVIDERS: PCP Family Medicine; Referring Provider Family Medicine; Visit Provider Nurse Practitioner Family
DX: E78.00 Pure hypercholesterolemia, unspecified (principal); Z13.1 Encounter for screening for diabetes mellitus; Z12.5 Encounter for screening for malignant neoplasm of prostate
CPT/HCPCS: 36415; 80053; 80061; 83036; 84153; G0103

== ENCOUNTER 2022-08-05 18:28 | Emergency (ER) | payer BC, SELFPAY ==
[2022-08-05 18:29] VITALS: BP 112/72; PULSE 91; RESP 16; TEMP 36.4; O2SAT 95; BMI 28.0
--- NOTE | 2022-08-05 18:37 | RAD_ITS ---
EXAM: XR LEFT FINGERS, 2 OR MORE VIEWS CLINICAL INDICATION: laceration -- index finger TECHNIQUE: Frontal, lateral and oblique views of the fingers of the left hand. This report was created using [employer] report generation technology. COMPARISON: None. FINDINGS: BONES/JOINTS: See below. SOFT TISSUES: Laceration on the dorsum of the 2nd finger. No visible fracture. No soft tissue swelling or gas. No radiopaque foreign body. RAD/Finger(s) Min 2 Views IMPRESSION: Laceration on the dorsum of the 2nd finger. No visible fracture. Electronically Signed: Jamari Underwood MD at 18:52 EST ,
--- NOTE | 2022-08-05 18:38 | EDS_ITS ---
HPI History of Present Illness Chief Complaint: Upper Extremity Injury Informant: patient and spouse/S.O. Narrative Narrative: [id number]-[id number]. Left index finger laceration 40 minutes prior to arrival. Using a drill press with his finger got too close. Tetanus in the last 5 years. No anticoagulation medicines. States tingling to the finger. No loss of function. History of hyperlipidemia. Bleeding controlled with pressure. [facility] Medical History Encounter for screening for COVID-19 Home Medications paroxetine HCl 10 mg tablet 10 mg PO DAILY 09/02/20 [History Last Taken Unknown] cholesterol med PO 08/28/21 [History Last Taken Unknown] Allergy/AdvReac Type Severity Reaction Status Date / Time No Known Allergies Allergy Verified 08/05/22 18:31 Social History Smoking Status: Never smoker ROS ROS ED Constitutional Constitutional ED: Denies chills, fever(s) or sweats Eyes Eyes: Denies change in vision ENT ENT ED: Denies dysphagia or sore throat Cardiovascular Cardiovascular: Denies chest pain, leg edema, palpitations or racing heartbeat Respiratory/Chest Respiratory/Chest: Denies cough, dyspnea or dyspnea on exertion Gastrointestinal Gastrointestinal: Denies abdominal pain, diarrhea, nausea or vomiting Genitourinary Genitourinary ED: Denies dysuria, hematuria or urinary frequency Musculoskeletal Musculoskeletal: Denies back pain, extremity pain or neck pain Integumentary Reports wounds and other Details: Left index finger ; Denies rash Neurologic Neurologic: Denies headache(s), paresthesias or weakness EXAM Physical Exam Const Vital Signs: 08/05/22 18:29 Temperature 97.5 F L Temperature Source Temporal Pulse Rate 91 Respiratory Rate 16 Blood Pressure 112/72 Blood Pressure Mean 85 Pulse Ox 95 Oxygen Delivery Method Room Air Positive well nourished and well developed General Appearance ED: well developed and NAD HEENT Reports moist mucous membranes normocephalic and atraumatic Eyes PERRL, EOMs intact bilaterally and conjunctivae normal General Eye ED: Yes normal appearance of both eyes Neck no lymphadenopathy and supple General: Negative for tenderness Chest Wall Chest: Negative for tenderness Resp normal respiratory effort and normal air movement Effort and Inspection: symmetric chest movement; Negative for respiratory distress Cardio regular rate, regular rhythm and no murmurs Peripheral Pulses: pulses 2+ throughout GI normal to inspection, nondistended, normoactive bowel sounds and non-tender Palpation: Negative for guarding or rebound tenderness present Back/Spine no CVA tenderness and no thoracic nor lumbar tenderness Extremity Extremity Narrative: Left hand: No hand injury index finger noted vertical laceration 4 cm creating a slight flap at the ends. Full range of motion of index with good strength with flexion against resistance at the DIP and PIP joint. Minimal bleeding controlled with pressure. No deformities. General Extremety ED: Negative for edema or tenderness General Extremity: Negative for edema Neuro oriented x3 and no sensory deficits noted Sensorium / Orientation: awake and alert Skin no rashes or lesions noted and no wounds MDM MDM MDM Narrative Medical decision making narrative: Patient three-view x-ray left index finger reviewed by myself read by radiology no fracture or dislocation. No radiopaque foreign bodies. Patient lacerations repaired. Wound care discussed. AlumaFoam splint splint to help with healing. Follow-up with his doctor in 14 days for suture removal. Procedure note: Verbal consent. Laceration repair. 4 cc lidocaine 1% used for metacarpal block bilaterally. Turnicot was placed copiously flushed with saline. The wound was evaluated through full range of motion of the digit with no tendon visualization. Laceration repaired using a total of 6, 5-0 nylon simple interrupted sutures. Turnicot was removed. Bacitracin dressing placed by myself. AlumaFoam splint placed by myself. Patient tolerated procedure well. Discharge Plan Triage Chief Complaint: Upper Extremity Injury ED Provider: Tobias Gallardo Dx/Rx/DC Orders Clinical Impression: Laceration of left index finger w/o foreign body w/o damage to nail, Injury of left index finger Instructions: ED Laceration, Hand: All Closures Prescriptions: No Action cholesterol med PO paroxetine HCl 10 MG tablet 10 mg PO DAILY Primary Care Provider: Edy Chaparro Referrals: Edy Chaparro MD [Primary Care Provider] - 10-14 Days suture removal Activity Restrictions/Additional Instructions: 6 total stitches placed to the index finger. Wound care as discussed. Splint to allow for better healing. Follow-up with your doctor 14 days for wound evaluation and suture removal. Disposition Disposition: Home, Self Care Discharge Date/Time: 08/05/22 20:09
[2022-08-05] MEDS: Lidocaine 1% (20 ml mdv) 20 ML Vial INFILT (18:53)
== END 2022-08-05 20:09 | disposition home or self-care (01) ==
PROVIDERS: Emergency Provider Emergency Medicine; PCP Family Medicine; Visit Provider Emergency Medicine
DX: S61.211A Laceration without foreign body of left index finger without damage to nail, initial encounter (principal); E78.5 Hyperlipidemia, unspecified; W31.89XA Contact with other specified machinery, initial encounter
CPT/HCPCS: 12001; 73140; 99283

== ENCOUNTER → 2023-06-13 | Outpatient (CLI) | payer BC, SELFPAY ==
[2023-06-13 15:23] LABS: Absolute Lymphocyte Count 1.19 X10^3/uL (0.83-4.51); Basophil# 0.06 X10^3/uL; Basophil% 1.6 % (0-1); Eosinophil# 0.17 X10^3/uL; Eosinophils% 4.5 % (0-5); Hematocrit 48.4 % (40-54); Hemoglobin 16.3 g/dL (13.0-16.5); Lymphocyte # 1.19 X10^3/ul (0.83-4.51); Lymphocyte % 31.8 % (19-41); Mean Corp Hgb Conc 33.7 g/dL (32-36); Mean Corpuscular Volume 86.1 fL (80-94); Mean Platelet Vol. 8.7 fl (6.2-12.0); Monocyte# 0.28 X10^3/uL; Monocyte% 7.5 % (0-10); NRBC Flagged by Analyzer 0 % (0-5); Neutrophil # 2.03 X10^3/uL (2.7-7.7); Neutrophil % 54.3 % (47-70); Platelet Count 338 K/mm3 (150-450); RBC Distribution Width CV 12.8 % (11.6-14.6); Red Blood Count 5.62 M/mm3 (4.6-6.2); White Blood Count 3.7 K/mm3 (4.4-11.0)
[2023-06-13 15:49] LABS: ALB/GLOB Ratio 1.2 RATIO (0.9-2.4); AST(SGOT) 29 U/L (15-37); Alanine Aminotransfer ALT/SGPT 51 U/L (16-61); Albumin, Serum 4.1 g/dL (3.2-5.0); Alkaline Phosphatase 94 U/L (45-117); Anion Gap 4 (5-15); BUN 16 mg/dL (7-18); BUN/Creat Ratio 15.1 RATIO (10-20); Calcium,Total 9.5 mg/dL (8.5-10.1); Chloride 106 mmol/L (98-107); Cholesterol 189 mg/dL (200); Creatinine, Serum 1.06 mg/dL (0.70-1.30); EST Glomerular Filtration Rate 77 mL/min (>60); Est Glom Filt Rate - Afr Amer 93 mL/min (>60); Globulin 3.3 g/dL (2.2-4.2); Glucose 84 mg/dL (74-106); High Density Lipoprotein 42 mg/dL; Potassium 4.2 mmol/L (3.5-5.1); Protein, Total 7.4 g/dL (6.4-8.2); Sodium Level 140 mmol/L (136-145); Triglycerides 167 mg/dL; Very Low Density Lipoprotein 33 mg/dL (5-40)
== END | disposition home or self-care (01) ==
LOC: MTLAB 11:36
PROVIDERS: PCP Family Medicine; Referring Provider Family Medicine; Visit Provider Family Medicine
DX: E78.00 Pure hypercholesterolemia, unspecified (principal); Z12.5 Encounter for screening for malignant neoplasm of prostate; E66.9 Obesity, unspecified; Z68.30 Body mass index [BMI] 30.0-30.9, adult
CPT/HCPCS: 36415; 80053; 80061; 85025

== ENCOUNTER → 2024-08-14 | Outpatient (CLI) | payer BC, SELFPAY ==
[2024-08-14 12:12] LABS: Absolute Lymphocyte Count 1.39 X10^3/uL (0.83-4.51); Absolute Neutrophil Count 2.1 X10^3/uL (2.0-7.7); Basophil# 0.07 X10^3/uL; Basophil% 1.7 % (0-1); Eosinophil# 0.16 X10^3/uL; Eosinophils% 3.9 % (0-5); Hematocrit 50.6 % (40-54); Hemoglobin 16.4 g/dL (13.0-16.5); Lymphocyte # 1.39 X10^3/ul (0.83-4.51); Lymphocyte % 34.2 % (19-41); Mean Corp Hgb Conc 32.4 g/dL (32-36); Mean Corpuscular Hgb 28.4 pg (27.0-32.0); Mean Corpuscular Volume 87.5 fL (80-94); Mean Platelet Vol. 9.1 fl (6.2-12.0); Monocyte# 0.36 X10^3/uL; Monocyte% 8.9 % (0-10); NRBC Flagged by Analyzer 0 % (0-5); Neutrophil # 2.07 X10^3/uL (2.7-7.7); Neutrophil % 51.1 % (47-70); Platelet Count 350 K/mm3 (150-450); RBC Distribution Width CV 12.6 % (11.6-14.6); RBC Distribution Width SD 40.6 fl (35.1-43.9); Red Blood Count 5.78 M/mm3 (4.6-6.2); White Blood Count 4.1 K/mm3 (4.4-11.0)
[2024-08-14 12:39] LABS: ALB/GLOB Ratio 1.3 RATIO (0.9-2.4); AST(SGOT) 26 U/L (15-37); Alanine Aminotransfer ALT/SGPT 51 U/L (16-61); Albumin, Serum 4.1 g/dL (3.2-5.0); Alkaline Phosphatase 91 U/L (45-117); Anion Gap 3 (5-15); BUN 16 mg/dL (7-18); BUN/Creat Ratio 13.9 RATIO (10-20); Calcium,Total 9.6 mg/dL (8.5-10.1); Chloride 107 mmol/L (98-107); Cholesterol 201 mg/dL (200); Creatinine, Serum 1.15 mg/dL (0.70-1.30); EST Glomerular Filtration Rate 69 mL/min (>60); Est Glom Filt Rate - Afr Amer 84 mL/min (>60); Globulin 3.2 g/dL (2.2-4.2); Glucose 99 mg/dL (74-106); High Density Lipoprotein 47 mg/dL; PSA,Total- Diagnostic 1.02 ng/mL (0.0-4.0); Potassium 4.6 mmol/L (3.5-5.1); Protein, Total 7.3 g/dL (6.4-8.2); Sodium Level 139 mmol/L (136-145); Thyroid Stim Hormone (TSH) 0.962 uIU/mL (0.358-3.740); Triglycerides 148 mg/dL; Very Low Density Lipoprotein 30 mg/dL (5-40)
== END | disposition home or self-care (01) ==
LOC: MFPLAB 09:36
PROVIDERS: PCP Family Medicine; Visit Provider Family Medicine
DX: F41.1 Generalized anxiety disorder (principal); R35.0 Frequency of micturition; Z12.5 Encounter for screening for malignant neoplasm of prostate; Z13.220 Encounter for screening for lipoid disorders; R79.89 Other specified abnormal findings of blood chemistry
CPT/HCPCS: 36415; 80053; 80061; 84153; 84443; 85025

== ENCOUNTER → 2025-08-07 | Outpatient (CLI) | payer BC, SELFPAY ==
[2025-08-07 18:24] LABS: PSA,Total - Annual Screen 1.07 ng/mL (0.02-4.00)
== END | disposition home or self-care (01) ==
LOC: MTLAB 16:04
PROVIDERS: PCP Family Medicine
DX: Z12.5 Encounter for screening for malignant neoplasm of prostate (principal)
CPT/HCPCS: 36415; 84153; G0103